=== PATIENT | male | born 1960 | race Caucasian/White ===

== ENCOUNTER → 2023-05-03 15:19 | Outpatient (REF) | payer MEDICARE, OTHER, SELFPAY | LOC: HWRAD 15:19 | PROVIDERS: ATTENDING PHYSICIAN Otolaryngology; FAMILY PHYSICIAN Family Medicine | DX: J34.2 Deviated nasal septum (principal); J30.9 Allergic rhinitis, unspecified; J32.2 Chronic ethmoidal sinusitis | CPT/HCPCS: 70486 ==